=== PATIENT | female | born 1995 | race African-American/Black ===

== ENCOUNTER 2020-12-09 23:17 | Emergency (ER) | payer OTHER, SELFPAY ==
[2020-12-09 23:22] VITALS: BP 150/104; PULSE 102; RESP 16; TEMP 36.3; O2SAT 99
[2020-12-10 00:02] LABS: Basophils Percent Auto 0.5 % (0.2-1.2); Eosinophils Absolute Auto 0.2 K/mm3 (0-0.3); Eosinophils Percent Auto 2.3 % (0-4.4); Hematocrit 42.3 % (37.0-47.0); Hemoglobin 13.7 g/dL (12.0-15.0); Immature Granulocyte Absolute 0.07 K/mm3 (0.00-0.031); Immature Granulocyte Percent A 0.8 % (0-0.5); Lymphocytes Percent Auto 24.1 % (18.3-44.2); Mean Corpuscular HGB Conc 32.4 g/dl (32-36); Mean Corpuscular Hemoglobin 27.2 pg (26-34); Mean Corpuscular Volume 84.1 fl (80-100); Mean Platelet Volume 9.3 fl (7.4-10.4); Monocytes Absolute Auto 0.6 K/mm3 (0.1-0.6); Monocytes Percent Auto 7.2 % (2.6-8.5); Neutrophils Absolute Auto 5.4 K/mm3 (1.3-6.7); Neutrophils Percent Auto 65.1 % (45.5-73.1); Platelet Count Result 425 k/mm3 (150-375); Red Blood Count 5.03 M/mm3 (4.2-5.4); Red Cell Distribution Width 12.8 % (11.5-14.5); White Blood Count 8.3 K/mm3 (4.5-10.0)
[2020-12-10 00:15] LABS: Ethanol < 10 mg/dL (<10)
[2020-12-10 00:16] LABS: Alanine Aminotransferase 18 U/L (4-35); Albumin Level 4.2 g/dL (3.5-5.1); Alkaline Phosphatase 81 U/L (38-126); Anion Gap 6 mmol/L (8-16); Aspartate Amino Transferase 28 U/L (14-36); Bilirubin,Total 0.2 mg/dL (0.2-1.3); Blood Urea Nitrogen 11 mg/dL (7-17); Calcium 8.9 mg/dL (8.4-10.2); Carbon Dioxide 30 mmol/L (22-30); Chloride 103 mmol/L (98-107); Estimated CRCL calculation 144 ml/min; Estimated Glomerular Filt Rate > 60; Glucose 103 mg/dL (65-105); Potassium 3.8 mmol/L (3.4-5.0); Sodium 139 mmol/L (137-145)
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
[2020-12-10 00:34] LABS: Add Urine Microscopic? YES; Appearance Urine Clear (Clear); Bacteria Urine Trace /hpf; Bilirubin Urine Negative (Negative); Blood Urine Negative (Negative); Color Urine Yellow (Yellow); Glucose Urine UA Negative (Negative); Ketones Urine Negative (Negative); Leukocyte Esterase Ur 1+ LEU/UL (Negative); Mucus Urine Rare /lpf; Nitrate Urine Negative (Negative); Protein Urine Negative (Negative); RBC Urine 0-2 /hpf (0-2); Specific Grav Ur 1.018 (1.001-1.035); Squamous Epithelial Cell Urine Many /hpf (Few); Urobilinogen Urine Negative mg/dL (<2.0); WBC Urine 0-3 /hpf
[2020-12-10 00:46] LABS: Amphetamine Screen Urine Negative (Negative); Barbiturate Screen Urine Negative (Negative); Benzodiazepines Screen Urine Negative (Negative); Cannabinoid Screen Urine Negative (Negative); Cocaine Screen Urine Negative (Negative); Methadone Screen Urine Negative (Negative); Opiate Screen Urine Negative (Negative); Phencyclidine Screen Urine Negative (Negative)
--- NOTE | 2020-12-10 03:00 | PC.NURSE ---
Assumed care of Pt. at this time. Report from JARON Moreno
[2020-12-10 03:29] VITALS: BP 134/80; PULSE 95; RESP 20; O2SAT 98
--- NOTE | 2020-12-10 03:29 | PC.NURSE ---
Paperwork faxed to [place], [place], and [facility]. Awaiting bed for placement at this time.
--- NOTE | 2020-12-10 05:22 | PC.NURSE ---
RN sitting with pt. pt. expresses to RN since you are cool, I will behave, but I want you to know that you need a better psych room. I could run my head into the corner of that table and hurt myself. It doesn't matter what you do or where I go, I will still be suicidal. 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 said.
--- NOTE | 2020-12-10 06:56 | PC.NURSE ---
fax to [facility] and [facility] did not go through. Refaxed.
--- NOTE | 2020-12-10 07:00 | PC.NURSE ---
Food tray ordered for pt.
[2020-12-10 07:07] VITALS: BP 135/100; PULSE 97; RESP 20; TEMP 37.1; O2SAT 99
--- NOTE | 2020-12-10 07:15 | PC.NURSE ---
[facility] at [facility] RN to refax Pt. lab values.
[2020-12-10 10:50] VITALS: BP 140/89; PULSE 97; RESP 16; O2SAT 99
[2020-12-10 14:41] LABS: SARS-CoV-2 RNA PCR Negative
[2020-12-10 15:08] VITALS: BP 131/88; PULSE 89; RESP 13; TEMP 36.4; O2SAT 100
--- NOTE | 2020-12-10 21:36 | PC.NURSE ---
[facility] has arrived
[2020-12-10 21:42] VITALS: BP 129/78; PULSE 88; RESP 18; O2SAT 97
== END 2020-12-10 21:43 ==
PROVIDERS: Emergency Medicine; Emergency Provider Emergency Medicine
DX: F32.9 Major depressive disorder, single episode, unspecified (principal); R45.851 Suicidal ideations; Z20.822 Contact with and (suspected) exposure to COVID-19
CPT/HCPCS: 36415; 80053; 80307; 81001; 81025; 84443; 85025; 99285; C9803; U0003; U0005

== ENCOUNTER 2021-01-07 22:55 | Emergency (ER) | payer OTHER, SELFPAY ==
--- NOTE | ~2021-01-07 | CT_ITS ---
EXAMINATION: CT abdomen pelvis wo con DATE: 01/08/2021 01:26 INDICATION: Epigastric pain TECHNIQUE: Computed tomography (CT) of the abdomen and pelvis was performed without intravenous contr ast. The dose-length product was 1804.92 mGy-cm. Automated exposure control and iterative reconstruct ion technique were employed. COMPARISON: None. FINDINGS: Lung bases are unremarkable. No significant pleural or pericardial effusion. No significant vascular abnormality. No lymphadenopathy. The liver, spleen, pancreas, adrenal glands and kidneys are unremarkable. Nonobstructive bowel gas pa ttern. Small fat-containing umbilical hernia. No abnormal pelvic masses or fluid collections. No free air or free fluid. No acute osseous abnormality. IMPRESSION: 1. No acute abdominal abnormality. Reviewed, dictated and finalized at location A.
[2021-01-07 22:57] VITALS: BP 132/77; PULSE 99; RESP 16; TEMP 36; O2SAT 100
--- NOTE | 2021-01-07 23:52 | ED.ABDPAIN ---
HPI - Abdominal Pain General Chief Complaint: Abdominal Pain Stated Complaint: abd pain Time Seen by Provider: 01/07/21 23:45 History of Present Illness HPI narrative: Constant epigastric pain for the past week. Exacerbated by eating. No radiation. Associated with nausea. Additionally she has had low back pain since a fall last year. It comes and goes. It is no different today than usual. No weakness, numbness. Related Data Allergies Allergy/AdvReac Type Severity Reaction Status Date / Time lurasidone [From Latuda] AdvReac Agitated Verified 12/10/20 00:21 Review of Systems Review of Systems: All systems reviewed & are unremarkable except as noted in HPI and below Constitutional: Constitutional: Denies fever(s) Cardiovascular: Cardiovascular: Denies chest pain Respiratory: Respiratory: Denies dyspnea Gastrointestinal: Gastrointestinal: Reports as per HPI Genitourinary: Genitourinary: Reports no additional female genitourinary complaints Musculoskeletal: Musculoskeletal: Reports as per HPI Neurologic: Denies dizziness and Denies weakness [facility] Social History Social History (Updated 01/15/21 @ 12:46 by Carlos Kitchen MD) Smoking status: Never smoker Substance use: never Exam Const: General: no acute distress and alert Nutritional Appearance: obese Orientation/consciousness: patient oriented x3 HENMT: Head: normal to inspection Resp: Effort & Inspection: normal respiratory effort Auscultation: clear to auscultation bilaterally Cardio: Rate: regular rate Rhythm: regular rhythm GI: GI Palp: Yes Tenderness to palpation present (GI) (epigastrium) Back/Spine/Pelvis: Other: Diffuse low back tenderness Skin: General skin exam: normal color Neuro: General: patient oriented x3, moves all extremities and no focal motor deficits Speech: normal speech Gait exam (Neuro): Normal gait present Extrem: General: normal to inspection Psych: Attitude: cooperative Course Vital Signs Vital signs: Vital Signs Temperature 36.0 C L 01/07/21 22:57 Pulse Rate 99 01/07/21 22:57 Respiratory Rate 16 01/07/21 22:57 Blood Pressure 132/77 01/07/21 22:57 Pulse Oximetry 100 01/07/21 22:57 Temperature 36.7 C 01/08/21 01:56 Pulse Rate 81 01/08/21 01:56 Respiratory Rate 16 01/08/21 01:56 Blood Pressure 126/82 01/08/21 01:56 Pulse Oximetry 100 01/08/21 01:56 MDM - Abdominal Pain MDM Narrative Medical decision making narrative: Mild elevation of liver enzymes. CT does not show anything to explain her symptoms. Differential Diagnosis Differential diagnosis: Likely pancreatitis and other (GERD, gastritis, cholecystitis) Medical Records Attestation: I reviewed the patient's medical records. Lab Data Attestation: I reviewed the patient's lab results. Result diagrams: 01/08/21 00:12 01/08/21 00:12 Labs: Lab Results 01/08/21 01/08/21 Range/Units 00:12 00:12 WBC 8.4 (4.5-10.0) K/mm3 RBC 4.63 (4.2-5.4) M/mm3 Hgb 12.7 (12.0-15.0) g/dL Hct 40.4 (37.0-47.0) % MCV 87.3 (80-100) fl MCH 27.4 (26-34) pg MCHC 31.4 L (32-36) g/dl RDW 13.2 (11.5-14.5) % Plt Count 417 H (150-375) k/mm3 MPV 9.0 (7.4-10.4) fl Immature Gran % (Auto) 0.6 H (0-0.5) % Neut % (Auto) 70.3 (45.5-73.1) % Lymph % (Auto) 20.3 (18.3-44.2) % [place] % (Auto) 6.9 (2.6-8.5) % Eos % (Auto) 1.7 (0-4.4) % Baso % (Auto) 0.2 (0.2-1.2) % Lymph # (Auto) 1.70 (0.9-3.2) K/mm3 [place] # (Auto) 0.6 (0.1-0.6) K/mm3 Eos # (Auto) 0.1 (0-0.3) K/mm3 Baso # (Auto) 0.0 (0.0-0.1) K/mm3 Abs Immat Gran (auto) 0.05 H (0.00-0.031) K/mm3 Absolute Neuts (auto) 5.9 (1.3-6.7) K/mm3 Absolute Nucleated RBC 0.0 (0.0-0.012) K/mm3 Nucleated RBC % 0.0 (0.0-0.2) % Sodium 138 (137-145) mmol/L Potassium 3.8 (3.4-5.0) mmol/L Chloride 101 (98-107) mmol/L Carbon Dioxide 30 (22-30) mmol/L Anion Gap 7 L (8-16)
[2021-01-08] MEDS: KETOROLAC (*BKC) 60 MG/2 ML VIAL IM (00:14)
[2021-01-08] MEDS: BELLADONNA ALK/PHENOB ELIX 10 ML, MAG HYDROX/ALUMINUM HYD/SIMETH 30 ML, LIDOCAINE HCL 2... PO (00:15)
[2021-01-08 00:24] LABS: Basophils Percent Auto 0.2 % (0.2-1.2); Eosinophils Absolute Auto 0.1 K/mm3 (0-0.3); Eosinophils Percent Auto 1.7 % (0-4.4); Hematocrit 40.4 % (37.0-47.0); Hemoglobin 12.7 g/dL (12.0-15.0); Immature Granulocyte Absolute 0.05 K/mm3 (0.00-0.031); Immature Granulocyte Percent A 0.6 % (0-0.5); Lymphocytes Percent Auto 20.3 % (18.3-44.2); Mean Corpuscular HGB Conc 31.4 g/dl (32-36); Mean Corpuscular Hemoglobin 27.4 pg (26-34); Mean Corpuscular Volume 87.3 fl (80-100); Monocytes Absolute Auto 0.6 K/mm3 (0.1-0.6); Monocytes Percent Auto 6.9 % (2.6-8.5); Neutrophils Absolute Auto 5.9 K/mm3 (1.3-6.7); Neutrophils Percent Auto 70.3 % (45.5-73.1); Platelet Count Result 417 k/mm3 (150-375); Red Blood Count 4.63 M/mm3 (4.2-5.4); Red Cell Distribution Width 13.2 % (11.5-14.5); White Blood Count 8.4 K/mm3 (4.5-10.0)
[2021-01-08 00:32] LABS: Alanine Aminotransferase 88 U/L (4-35); Albumin Level 4.2 g/dL (3.5-5.1); Alkaline Phosphatase 98 U/L (38-126); Anion Gap 7 mmol/L (8-16); Aspartate Amino Transferase 85 U/L (14-36); Bilirubin,Total 0.4 mg/dL (0.2-1.3); Blood Urea Nitrogen 16 mg/dL (7-17); Calcium 9.2 mg/dL (8.4-10.2); Carbon Dioxide 30 mmol/L (22-30); Chloride 101 mmol/L (98-107); Estimated CRCL calculation 158 ml/min; Estimated Glomerular Filt Rate > 60; Glucose 101 mg/dL (65-105); Lipase 38 U/L (23-300); Potassium 3.8 mmol/L (3.4-5.0); Sodium 138 mmol/L (137-145)
[2021-01-08 01:56] VITALS: BP 126/82; PULSE 81; RESP 16; TEMP 36.7; O2SAT 100
== END 2021-01-08 01:57 | disposition home or self-care (01) ==
PROVIDERS: Emergency Provider Emergency Medicine; PCP Family Medicine
DX: R10.13 Epigastric pain (principal); M54.5 Low back pain
CPT/HCPCS: 36415; 74176; 80053; 81025; 83690; 85025; 96372; 99284; A9270; J1885